=== PATIENT | male | born 1970 | race Caucasian/White ===

== ENCOUNTER 2018-01-04 07:09 | Day surgery (SDC) | payer OTHER ==
[2018-01-04] MEDS ORDERED: KETOROLAC 30 MG/ML VIAL ONE (08:48)
[2018-01-04] MEDS ORDERED: LIDOCAINE 2% 100 MG/5 ML UJET TP ONE (08:48)
== END 2018-01-04 10:04 | disposition home or self-care (01) ==
LOC: MOR 07:09 → MMU 07:12 → MOR 10:04
PROVIDERS: ATTEND Internal Medicine Gastroenterology
DX: K62.5 Hemorrhage of anus and rectum (principal); K64.8 Other hemorrhoids; Z98.890 Other specified postprocedural states
CPT/HCPCS: 45378; J1885